=== PATIENT | male | born 2000 | race Caucasian/White ===

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

== ENCOUNTER → 2021-07-27 | Outpatient (CLI) | payer OTHER, SELFPAY | END | disposition home or self-care (01) | PROVIDERS: Referring Provider Internal Medicine; Visit Provider Internal Medicine | DX: Z20.822 Contact with and (suspected) exposure to COVID-19 (principal) | CPT/HCPCS: 87635; U0005; U0003 ==

== ENCOUNTER 2021-08-01 22:24 | Emergency (ER) | payer OTHER, SELFPAY ==
[2021-08-01 22:24] VITALS: BP 129/77; PULSE 105; RESP 18; TEMP 36.4; O2SAT 97; BMI 34.0
[2021-08-01] MEDS: Morphine 4 MG/ML Syringe IV (23:04)
[2021-08-01] MEDS: Ondansetron 4 MG/2 ML Vial IV (23:04)
[2021-08-01] MEDS: 0.9% Normal Saline 1,000 ML 1000 ML IV (23:04)
[2021-08-01 23:36] LABS: Absolute Lymphocyte Count 1.25 X10^3/uL (0.83-4.51); Absolute Neutrophil Count 13.1 X10^3/uL (2.0-7.7); Basophil# 0.06 X10^3/uL; Basophil% 0.4 % (0-1); Eosinophil# 0.04 X10^3/uL; Eosinophils% 0.3 % (0-5); Hematocrit 52.3 % (40-54); Hemoglobin 17.5 g/dL (13.0-16.5); Lymphocyte # 1.25 X10^3/ul (0.83-4.51); Lymphocyte % 7.9 % (19-41); Mean Corp Hgb Conc 33.5 g/dL (32-36); Mean Corpuscular Hgb 29.4 pg (27.0-32.0); Mean Corpuscular Volume 87.8 fL (80-94); Mean Platelet Vol. 10.2 fl (6.2-12.0); Monocyte# 1.31 X10^3/uL; Monocyte% 8.3 % (0-10); NRBC Flagged by Analyzer 0 % (0-5); Neutrophil # 13.11 X10^3/uL (2.7-7.7); Neutrophil % 82.7 % (47-70); POSITIVE COUNT YES; Platelet Count 266 K/mm3 (150-450); RBC Distribution Width CV 12.2 % (11.6-14.6); RBC Distribution Width SD 39.1 fl (35.1-43.9); Red Blood Count 5.96 M/mm3 (4.6-6.2); White Blood Count 15.8 K/mm3 (4.4-11.0)
[2021-08-01 23:45] LABS: AST(SGOT) 63 U/L (15-37); Alanine Aminotransfer ALT/SGPT 138 U/L (16-61); Albumin, Serum 4.2 g/dL (3.2-5.0); Alkaline Phosphatase 97 U/L (45-117); Anion Gap 9 (5-15); BUN 16 mg/dL (7-18); BUN/Creat Ratio 13.2 RATIO (10-20); Calcium,Total 9.3 mg/dL (8.5-10.1); Chloride 105 mmol/L (98-107); Creatinine, Serum 1.21 mg/dL (0.70-1.30); EST Glomerular Filtration Rate 79 mL/min (>60); Est Glom Filt Rate - Afr Amer 96 mL/min (>60); Glucose 108 mg/dL (74-106); Lipase 81 U/L (73-393); Potassium 4.4 mmol/L (3.5-5.1); Protein, Total 8.2 g/dL (6.4-8.2); Sodium Level 140 mmol/L (136-145)
[2021-08-01 23:49] LABS: Differential Indicated SCAN CRITERIA MET
[2021-08-02 00:13] LABS: Platelet Morphology CLUMPED
[2021-08-02 00:27] VITALS: RESP 18
--- NOTE | 2021-08-02 01:07 | EDS_ITS ---
HPI HPI - GI History of Present Illness Chief Complaint: Nausea/Vomiting/Diarrhea Informant: patient Abdominal Pain/Flank Pain Onset: Today Context: Sudden Onset Timing: Waxes and wanes Quality: Sharp Location: Epigastric, RUQ and LUQ Worsened by: Nothing Relieved by: - (Vomiting) Nausea/Vomiting/Emesis GI Symptom: Positive for Nausea and Vomiting Quality: Negative for Blood streaks, Coffee ground and Hematemesis Diarrhea/Melena/Hematochezia GI Symptom: Positive for Diarrhea; Negative for Melena and Hematochezia Associated Symptoms Associated Symptoms: Negative for Dysuria, Frequency and Hematuria Narrative Narrative: Patient Yunior with abdominal pain, nausea, and vomiting that began today. Patient states it began after eating [employer] tonight. Patient states his pain waxes and wanes. Patient states that the sharp. Patient states it is over the upper abdomen. Patient states his pain actually gets better after vomiting. Patient denies any hematemesis or coffee-ground emesis. Patient states he is just vomiting stomach contents. Patient does admit to some diarrhea as well. Patient denies any melena or hematochezia. Patient denies an y urinary complaints. PFSH PFSH Medical History no medical history Home Medications dexmethylphenidate 40 mg PO DAILY 08/01/21 [History Last Taken Unknown] ondansetron 4 mg PO Q8H PRN PRN #10 tab 08/02/21 [Rx Last Taken Unknown] Allergy/AdvReac Type Severity Reaction Status Date / Time No Known Allergies Allergy Verified 08/01/21 22:26 Family History no significant family his Surgical History (Updated 08/02/21 @ 01:[address] Arron Page DO) Hx of tonsillectomy Surgical History no surgical history Social History Smoking Status: Never smoker ROS ROS ED Constitutional Constitutional ED: Denies chills or fever(s) Eyes Eyes: Denies blurry vision or change in vision ENT ENT ED: Denies rhinorrhea or sore throat Cardiovascular Cardiovascular: Denies chest pain or palpitations Respiratory/Chest Respiratory/Chest: Denies cough or dyspnea Gastrointestinal Gastrointestinal: Reports abdominal pain, diarrhea, nausea and vomiting; Denies melena Genitourinary Genitourinary ED: Denies dysuria or hematuria Musculoskeletal Musculoskeletal: Denies back pain or neck pain Integumentary Denies abscess or rash Neurologic Neurologic: Denies headache(s) or weakness Allergic/Immunologic Allergic/Immunologic ED: Denies mouth swelling or urticaria EXAM Physical Exam Const Vital Signs: 08/01/21 22:24 08/02/21 00:27 Temperature 97.6 F L Temperature Source Temporal Pulse Rate 105 H Respiratory Rate 18 18 Blood Pressure 129/77 H Blood Pressure Mean 94 Pulse Ox 97 Oxygen Delivery Method Room Air Positive well nourished and well developed General Appearance ED: well developed HEENT Reports moist mucous membranes Neck supple and no JVD Resp normal respiratory effort and clear to auscultation bilaterally Cardio regular rate, regular rhythm and no murmurs GI normal to inspection, nondistended, normoactive bowel sounds and non-distended Palpation: soft and tender epigastric, LUQ and RUQ; Negative for guarding or rebound tenderness present Extremity normal to inspection General Extremety ED: Negative for edema or tenderness General Extremity: Negative for edema Neuro oriented x3, CN's II-XII intact bilaterally and no sensory deficits noted Sensorium / Orientation: alert Motor Exam: strength 5/5 throughout Psych mental status grossly normal Skin no rashes or lesions noted MDM MDM MDM Narrative Medical decision making narrative: Patient was given IV fluids, morphine, and Zofran. CBC shows a leukocytosis of 15.8. This is likely from the vomiting. Hemoglobin was slightly elevated at 17.5. Comprehensive metabolic profile was within normal limits. Lipase was normal. Patient is feeling better on reevaluation. Patient states his nausea started to come back. Patient was given another dose of Zofran here. Patient was given a prescription for Zofran. Patient was instructed to start with a liquid diet then advance to a bland diet and then to a regular diet as she starts to feel better. Patient was instructed to follow-up with his primary care physician in 5 to 7 days. Patient understood and was agreeable with the plan. All questions were answered. Lab Data Attestation: I reviewed the patient's lab results. Labs: Laboratory Results - last 24 hr 08/01/21 08/01/21 23:02 23:02 WBC 15.8 H RBC 5.96 Hgb 17.5 H Hct 52.3 MCV 87.8 MCH 29.4 MCHC 33.5 RDW Std Deviation 39.1 RDW Coeff of Shellie 12.2 Plt Count 266 MPV 10.2 Immature Gran % (Auto) 0.400 Neut % (Auto) 82.7 H Lymph % (Auto) 7.9 L [place] % (Auto) 8.3 Eos % (Auto) 0.3 Baso % (Auto) 0.4 Absolute Neuts (auto) 13.1 H Absolute Lymphs (auto) 1.25 Nucleated RBC % 0 Plt Morphology Comment CLUMPED Sodium 140 Potassium 4.4 Chloride 105 Carbon Dioxide 26.0 Anion Gap 9 BUN 16 Creatinine 1.21 Estim Creat Clear Calc 123.80 Est GFR (MDRD) Af Amer 96 Est GFR (MDRD) Non-Af 79 BUN/Creatinine Ratio 13.2 Glucose 108 H Calcium 9.3 Total Bilirubin 0.50 AST 63 H ALT 138 H Alkaline Phosphatase 97 Total Protein 8.2 Albumin 4.2 Globulin 4.0 Albumin/Globulin Ratio 1.0 Lipase 81 Discharge Plan Triage Chief Complaint: Nausea/Vomiting/Diarrhea ED Provider: Arron Page Dx/Rx/DC Orders Clinical Impression: Nausea vomiting and diarrhea Instructions: ED Food Poison Or Gastroenteritis, ED Vomiting and Diarrhea ... Prescriptions: New ondansetron [ondansetron] 4 MG tablet 4 mg PO Q8H PRN PRN (Reason: Nausea) Qty: 10 RF: 0 No Action dexmethylphenidate 40 mg capsule,ER biphasic 50-50 40 mg PO DAILY RF: 0 Primary Care Provider: Jennifer Christian Referrals: Jennifer Christian MD [Primary Care Provider] - 3-5 Days Disposition Disposition: Home, Self Care
[2021-08-02] MEDS: Ondansetron 4 MG/2 ML Vial IV (01:25)
[2021-08-02 01:26] VITALS: RESP 16
== END 2021-08-02 01:26 | disposition home or self-care (01) ==
PROVIDERS: Emergency Provider Emergency Medicine; PCP Internal Medicine
DX: R11.2 Nausea with vomiting, unspecified (principal); R19.7 Diarrhea, unspecified; R10.9 Unspecified abdominal pain
CPT/HCPCS: 80053; 83690; 85025; 96361; 96374; 96375; 96376; 99283; J7030; A4216; J2405